=== PATIENT | male | born 1985 | race African-American/Black ===

== ENCOUNTER 2016-08-03 12:54 | Emergency (ER) | payer SELFPAY ==
[~2016-08-03] VITALS: Ht 182.9 cm; Wt 75.0 kg
[~2016-08-03 12:54] MED LIST: IBUP-988 PO; SALI0.653 EACH NARE
[2016-08-03 12:56] VITALS: BP 131/73; PULSE 126; RESP 20; TEMP 98.3; O2SAT 95
[2016-08-03 14:00] VITALS: BP 130/67; PULSE 105; RESP 18; O2SAT 99
[2016-08-03] MEDS ORDERED: SODIUM CHLOR 0.9% 1000 ML INJ 1,000 ML IV SCH (14:14)
[2016-08-03] MEDS ORDERED: SODIUM CHLORIDE 0.9% FLUSH 10 ML FLUSH IV FLUSH PRN (14:15)
[2016-08-03] MEDS ORDERED: ONDANSETRON HCL 4 MG/2 ML VIAL IVP ONE (14:15)
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
[2016-08-03 14:31] VITALS: O2SAT 99
[2016-08-03 14:36] LABS: AUTOMATED NEUTROPHIL # 23.3 TH/MM3 (1.8-7.7); BASOPHIL # 0.2 TH/MM3 (0-0.2); BASOPHIL % 0.7 % (0.0-2.0); HEMATOCRIT 41.1 % (39.0-51.0); HEMO FLAGS DIFF FINAL; MEAN CELL VOLUME 89.9 FL (80.0-100.0); MEAN CORPUSCULAR HEMOGLOBIN 29.5 PG (27.0-34.0); MEAN CORPUSCULAR HGB CONC 32.9 % (32.0-36.0); MONO % 6.6 % (0.0-8.0); NEUT % 88.7 % (16.0-70.0); PLATELET COUNT 213 TH/MM3 (150-450); RED BLOOD COUNT 4.58 MIL/MM3 (4.50-5.90); RED CELL DISTRIBUTION WIDTH 12.2 % (11.6-17.2); WHITE BLOOD COUNT 26.3 TH/MM3 (4.0-11.0)
[2016-08-03 14:45] LABS: BLOOD, URINE SMALL (NEG); COMMENT (UR) CULT NOT INDICATED; CULTURE IF INDICATED CULT NOT INDICATED; GLUCOSE,URINE NEG (NEG); KETONE, URINE 10 mg/dL (NEG); MUCUS URINE FEW /lpf (OCC); NITRITE,URINE NEG (NEG); SQUAMOUS EPITHELIAL CELL URINE <1 /hpf (0-5); URINE COLOR YELLOW (YELLW/STRAW)
[2016-08-03 14:48] LABS: APTT (PATIENT) 29.4 SEC (24.3-30.1); PROTHROMBIN TIME - PATIENT 11.6 SEC (9.8-11.6)
[2016-08-03 15:01] LABS: ANION GAP 9 MEQ/L (5-15); AST (GOT) 19 U/L (15-37); BLOOD UREA NITROGEN 11 MG/DL (7-18); CHLORIDE 99 MEQ/L (98-107); GLOMERULAR FILTRATION RATE 88 ML/MIN (>89); POTASSIUM 3.9 MEQ/L (3.5-5.1); SODIUM (NA) 135 MEQ/L (136-145)
[2016-08-03 15:04] LABS: ALKALINE PHOSPHATASE 77 U/L (45-117); ALT (GPT) 17 U/L (12-78); TOTAL BILIRUBIN ADULT 1.4 MG/DL (0.2-1.0)
--- NOTE | 2016-08-03 15:06 | RADRPT ---
EXAM DATE/TIME: 08/03/2016 14:55 [facility] COMPARISON: CHEST SINGLE AP, April 05, 2016, 20:23. INDICATIONS : Cough, chest pain for 3 days MEDICAL HISTORY : None. SURGICAL HISTORY : None. ENCOUNTER: Initial ACUITY: 3 days PAIN SCORE: 8/10 LOCATION: Bilateral chest FINDINGS: There is a focal consolidation at the right lung base medially, likely right lower lobe. Left lung cl ear. No effusion. No pneumothorax. CONCLUSION: 1. Focal consolidation right lung base most characteristic of bronchopneumonia. Quirino Sales MD on August 03, 2016 at 15:04 Board Certified Radiologist. This report was verified electronically.
[2016-08-03] MEDS ORDERED: SODIUM CHLOR 0.9% 1000 ML INJ 1,000 ML IV ONE ×2 (15:15→16:30)
[2016-08-03] MEDS ORDERED: cefTRIAXone INJ 1,000 MG in SODIUM CHLORIDE 0.9% INJ 25 ML IV ONE (15:15)
[2016-08-03] MEDS ORDERED: AZITHROMYCIN 250 MG TAB PO ONE (15:15)
[2016-08-03] MEDS ORDERED: ZITHTAB PO ×2 (15:33→16:16)
[2016-08-03] MEDS ORDERED: ALBUAER3 INH ×2 (15:33→16:16)
[2016-08-03] MEDS ORDERED: PRED50 PO ×2 (15:33→16:16)
[2016-08-03] MEDS ORDERED: PROM25TA5 PO ×2 (15:33→16:16)
[2016-08-03] MEDS ORDERED: DOXY100C PO (17:03)
== END 2016-08-03 17:45 | disposition home or self-care (01) ==
LOC: NEPC 12:54
DX: J18.8 Other pneumonia, unspecified organism (principal); R11.2 Nausea with vomiting, unspecified; R19.7 Diarrhea, unspecified; R00.0 Tachycardia, unspecified; D72.829 Elevated white blood cell count, unspecified; F17.200 Nicotine dependence, unspecified, uncomplicated; Z87.09 Personal history of other diseases of the respiratory system
CPT/HCPCS: 71010; 80053; 81001; 83690; 85025; 85610; 85730; 87804; 96361; 96374; 96375; 99284; J0696; J2405; J7030

== ENCOUNTER 2016-10-15 00:45 | Emergency (ER) | payer SELFPAY ==
[~2016-10-15] VITALS: Ht 182.9 cm; Wt 73.0 kg
[~2016-10-15 00:45] MED LIST changes: +ALBUAER3 INH; +DOXY100C PO; -IBUP-988 PO; +PRED50 PO; +PROM25TA5 PO; -SALI0.653 EACH NARE
[2016-10-15 00:48] VITALS: BP 126/64; PULSE 78; RESP 16; TEMP 98.1; O2SAT 98
[2016-10-15] MEDS ORDERED: SODIUM CHLORIDE 0.9% FLUSH 10 ML FLUSH IVF PRN (01:15)
[2016-10-15 01:19] VITALS: BP_SYST 126; BP_SYST 131; BP_DIAS 64; BP_DIAS 70; RESP 16; O2SAT 98
[2016-10-15 01:29] LABS: AUTOMATED NEUTROPHIL # 4.6 TH/MM3 (1.8-7.7); BASOPHIL # 0.2 TH/MM3 (0-0.2); BASOPHIL % 3.1 % (0.0-2.0); EOSINOPHIL % 0.6 % (0.0-4.0); HEMATOCRIT 40.5 % (39.0-51.0); HEMO FLAGS DIFF FINAL; LYMPHOCYTE # 2.7 TH/MM3 (1.0-4.8); MEAN CELL VOLUME 88.6 FL (80.0-100.0); MEAN CORPUSCULAR HEMOGLOBIN 30.6 PG (27.0-34.0); MEAN CORPUSCULAR HGB CONC 34.5 % (32.0-36.0); MONO % 4.4 % (0.0-8.0); NEUT % 57.9 % (16.0-70.0); PLATELET COUNT 265 TH/MM3 (150-450); RED BLOOD COUNT 4.56 MIL/MM3 (4.50-5.90); RED CELL DISTRIBUTION WIDTH 12.2 % (11.6-17.2)
[2016-10-15 01:46] LABS: PROTHROMBIN TIME - PATIENT 11.1 SEC (9.8-11.6)
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
[2016-10-15 01:53] LABS: ALT (GPT) 37 U/L (12-78); ANION GAP 8 MEQ/L (5-15); AST (GOT) 34 U/L (15-37); BICARBONATE 26.9 MEQ/L (21.0-32.0); BLOOD UREA NITROGEN 5 MG/DL (7-18); CHLORIDE 108 MEQ/L (98-107); GLOMERULAR FILTRATION RATE 129 ML/MIN (>89); MAGNESIUM 2.2 MG/DL (1.5-2.5); POTASSIUM 3.5 MEQ/L (3.5-5.1); SODIUM (NA) 143 MEQ/L (136-145)
[2016-10-15 01:57] LABS: ALKALINE PHOSPHATASE 74 U/L (45-117); CREATINE KINASE 562 U/L (39-308); TOTAL BILIRUBIN ADULT 0.4 MG/DL (0.2-1.0)
[2016-10-15] MEDS ORDERED: SODIUM CHLOR 0.9% 1000 ML INJ 1,000 ML IV ONE (02:00)
[2016-10-15] MEDS ORDERED: ASPIRIN 81 MG CHEW TAB CHEW ONE (02:00)
[2016-10-15 02:09] LABS: CKMB 1.1 NG/ML (0.5-3.6)
--- NOTE | 2016-10-15 02:21 | RADRPT ---
EXAM DATE/TIME: 10/15/2016 02:12 [facility] COMPARISON: CHEST SINGLE AP, August 03, 2016, 14:55. INDICATIONS : Chest pain. MEDICAL HISTORY : None. SURGICAL HISTORY : None. ENCOUNTER: Initial ACUITY: 1 day PAIN SCORE: 0/10 LOCATION: Bilateral chest FINDINGS: A single view of the chest demonstrates the lungs to be symmetrically aerated without evidence of mas s, infiltrate or effusion. The cardiomediastinal contours are unremarkable. Osseous structures are intact. CONCLUSION: Normal examination. Cesar Almodovar MD on October 15, 2016 at 2:18 Board Certified Radiologist. This report was verified electronically.
--- NOTE | 2016-10-15 21:18 | EKG ---
Date Performed: 10/15/2016 Time Performed: 00:54:32 PTAGE: 31 years EKG: Sinus rhythm POSSIBLE LEFT ATRIAL ENLARGEMENT ST ELEVATION, PROBABLY EARLY REPOLARIZATION BORDERLINE ECG NO PREVIOUS TRACING DOCTOR: Joey Corrales Interpretating Date/Time 10/15/2016 21:13:53
== END 2016-10-15 04:46 | disposition home or self-care (01) ==
LOC: NEPC 00:45
DX: R07.9 Chest pain, unspecified (principal); R06.02 Shortness of breath; F17.210 Nicotine dependence, cigarettes, uncomplicated
CPT/HCPCS: 71010; 80053; 82550; 82552; 83735; 83880; 84484; 85025; 85379; 85610; 85730; 93005; 99285; J7030